=== PATIENT | female | born 1990 | race Two or more races ===

== ENCOUNTER 2020-04-18 08:50 | Observation (INO) | payer OTHER ==
[~2020-04-18] VITALS: Ht 154.9 cm; Wt 59.0 kg
[2020-04-18 09:38] VITALS: BP 110/72
[2020-04-18] MEDS ORDERED: METF-961 PO (10:13)
[2020-04-18] MEDS ORDERED: PREN-217 PO (10:13)
[2020-04-18 19:07] LABS: GLUCOMETER DEV NAME(LOC) 4S.; GLUCOSE,POINT OF CARE 128 MG/DL (70-110)
== END 2020-04-18 13:45 | disposition home or self-care (01) ==
LOC: 4S 08:50
PROVIDERS: ADMIT Obstetrics & Gynecology; ATTEND Obstetrics & Gynecology
DX: O24.419 Gestational diabetes mellitus in pregnancy, unspecified control (principal); Z3A.37 37 weeks gestation of pregnancy
CPT/HCPCS: 59025; 99219

== ENCOUNTER 2020-04-22 10:12 | Inpatient (IN) | payer OTHER ==
[~2020-04-22] VITALS: Ht 154.9 cm; Wt 59.9 kg
[~2020-04-22 10:12] MED LIST: METF-961 PO; PREN-217 PO
[2020-04-22 10:50] VITALS: BP 104/70
[2020-04-22 11:04] LABS: BASOPHILS % (AUTO) 0.9 % (0.0-2.0); EOSINOPHILS % (AUTO) 0.5 % (1.0-6.0); HEMATOCRIT 32.4 % (36-46); HEMOGLOBIN 11.2 g/dL (12.0-16.0); LYMPHOCYTES # (AUTO) 1.2 K/uL (1.0-4.8); LYMPHOCYTES % (AUTO) 15.1 % (22.0-44.0); MEAN CORPUSCULAR HEMOGLOBIN 31.9 pg (26.0-34.0); MEAN CORPUSCULAR HGB CONC 34.7 G/dL (31.0-37.0); MEAN CORPUSCULAR VOLUME 92 fL (80-100); MONOCYTES # (AUTO) 0.6 K/uL (0.1-1.0); MONOCYTES % (AUTO) 7.7 % (2.0-9.0); NEUTROPHILS # (AUTO) 6.1 K/uL (1.8-7.7); NEUTROPHILS % (AUTO) 75.8 % (40.0-70.0); PLATELET COUNT (AUTO) 300 K/uL (150-450); RED BLOOD CELL COUNT(AUTO) 3.51 MIL/uL (4.00-5.20); RED CELL DISTRIBUTION WIDTH 13.1 % (11.5-14.5)
[2020-04-22 11:20] LABS: CREATININE,URINE RANDOM 208.7 mg/dL (30.0-125.0)
[2020-04-22 11:22] LABS: ANION GAP 10 mmol/L (8-16); CARBON DIOXIDE 24 mmol/L (22-29); CHLORIDE 105 mmol/L (98-107); CREATININE 0.71 mg/dL (0.60-1.30); GLOMERULAR FILTR. RATE CALC > 60 mL/min (>60); GLUCOSE,RANDOM 95 mg/dL (70-110); POTASSIUM 3.8 mmol/L (3.5-5.1); SODIUM SERUM 139 mmol/L (136-145); UREA NITROGEN, BLOOD 13 mg/dL (7-18)
[2020-04-22 11:25] LABS: HEMOGLOBIN A1C 5.2 % (3.8-5.6)
[2020-04-22 11:28] LABS: ALANINE AMINOTRANSFERASE 12 U/L (12-78); ALBUMIN 2.6 g/dL (3.4-5.0); ALKALINE PHOSPHATASE 143 U/L (46-116); ASPARTATE AMINOTRANSFERASE 16 U/L (15-37); BILIRUBIN,TOTAL 0.3 mg/dL (0.1-1.0); TOTAL PROTEIN, SERUM 6.5 g/dL (6.4-8.2); URIC ACID 4.7 mg/dL (2.6-7.2)
[2020-04-22 13:18] LABS: GLUCOMETER DEV NAME(LOC) 4S.; GLUCOSE,POINT OF CARE 105 MG/DL (70-110)
[2020-04-22] MEDS ORDERED: RINGERS SOLUTION,LACTATED 1,000 ML IV SCH (14:30)
[2020-04-22] MEDS ORDERED: TERBUTALINE SULFATE 1 MG/ML VIAL SQ PRN (14:30)
[2020-04-22] MEDS ORDERED: METHYLERGONOVINE MALEATE 0.2 MG/ML VIAL IM PRN (14:30)
[2020-04-22] MEDS ORDERED: OXYTOCIN 30 UNITS/LACT RINGERS 500 ML IV ONE (14:30)
[2020-04-22] MEDS ORDERED: RINGERS SOLUTION,LACTATED 1,000 ML IV PRN (14:30)
[2020-04-22] MEDS ORDERED: LIDOCAINE/PF 1% 30 ML VIAL INJ PRN (14:30)
[2020-04-22] MEDS ORDERED: CITRIC ACID/SODIUM CITRATE 30 ML SOLUTION UDCUP PO PRN (14:30)
[2020-04-22] MEDS ORDERED: FentaNYL CITRATE-PF 100 MCG/2 ML VIAL IVP PRN (14:30)
[2020-04-22] MEDS ORDERED: METOCLOPRAMIDE HCL 5 MG/ML 2 ML VIAL IVP PRN (14:30)
[2020-04-22 15:05] LABS: COVID AG,FIA SOURCE NASOPHARYNGEAL
[2020-04-22] MEDS ORDERED: MetFORMIN HCL 850 MG TABLET PO ONE (15:30)
[2020-04-22] MEDS ORDERED: OXYTOCIN 30 UNITS/LACT RINGERS 500 ML IV PRN (21:30)
[2020-04-22] MEDS ORDERED: AMPICILLIN SODIUM 2 GM/NS 100 ML IV ONE (22:00)
[2020-04-23] MEDS: AMPICILLIN SODIUM 1 GM/NS 50 ML IV SCH ×3 (02:09→10:39)
[2020-04-23] MEDS ORDERED: INFLUENZA VIRUS VACCINE QVS 2020-21 (6MO+)/PF 60 MCG/0.5 ML SYRINGE IM ONE (03:45)
[2020-04-23 07:40] LABS: GLUCOMETER DEV NAME(LOC) 4S.; GLUCOSE,POINT OF CARE 89 MG/DL (70-110)
[2020-04-23 07:40] LABS: GLUCOMETER DEV NAME(LOC) 4S.; GLUCOSE,POINT OF CARE 84 MG/DL (70-110)
[2020-04-23 09:42] LABS: GLUCOMETER DEV NAME(LOC) 4S.; GLUCOSE,POINT OF CARE 105 MG/DL (70-110)
[2020-04-23] MEDS ORDERED: ROPIVACAINE HCL/PF 0.2% 100 ML ED ONE (10:49)
[2020-04-23] MEDS ORDERED: BUPIVACAINE HCL/PF 0.25% 10 ML VIAL ONE (10:49)
[2020-04-23] MEDS ORDERED: ROPIVACAINE HCL/PF 0.2% 100 ML ED PRN (11:15)
[2020-04-23] MEDS ORDERED: NALBUPHINE HCL 10 MG/ML VIAL IVP PRN (11:15)
[2020-04-23] MEDS ORDERED: DiphenhydrAMINE HCL 50 MG/ML VIAL IVP PRN (11:15)
[2020-04-23] MEDS ORDERED: ONDANSETRON HCL 4 MG/2 ML VIAL IVP PRN (11:15)
[2020-04-23] MEDS ORDERED: LIDOCAINE 1%/EPI 1:200,000/PF 10 ML VIAL ONE (12:09)
[2020-04-23] MEDS ORDERED: LANOLIN 7 GM OINTMENT TP PRN (16:30)
[2020-04-23] MEDS ORDERED: OxyCODONE HCL/ACETAMINOPHEN 5-325 MG TABLET PO PRN ×2 (16:30)
[2020-04-23] MEDS ORDERED: GLYCERIN/WITCH HAZEL LEAF 40 PADS JAR TP PRN (16:30)
[2020-04-23] MEDS ORDERED: OXYTOCIN 30 UNITS/LACT RINGERS 500 ML IV ONE (16:30)
[2020-04-23] MEDS ORDERED: BENZOCAINE 20%/MENTHOL 56 GM SPRAY CANISTER TP PRN (16:30)
[2020-04-23] MEDS: IBUPROFEN 800 MG TABLET PO PRN (17:55)
[2020-04-23] MEDS: MAGNESIUM HYDROXIDE SUSPENSION 30 ML UDCUP PO PRN (21:38)
[2020-04-24] MEDS: IBUPROFEN 800 MG TABLET PO PRN ×2 (03:46→15:37)
[2020-04-24 03:56] LABS: BASOPHILS % (AUTO) 0.7 % (0.0-2.0); EOSINOPHILS % (AUTO) 0.1 % (1.0-6.0); HEMATOCRIT 26.4 % (36-46); LYMPHOCYTES # (AUTO) 1.1 K/uL (1.0-4.8); LYMPHOCYTES % (AUTO) 9.2 % (22.0-44.0); MEAN CORPUSCULAR HEMOGLOBIN 31.7 pg (26.0-34.0); MEAN CORPUSCULAR HGB CONC 34.1 G/dL (31.0-37.0); MEAN CORPUSCULAR VOLUME 93 fL (80-100); MONOCYTES # (AUTO) 1.1 K/uL (0.1-1.0); MONOCYTES % (AUTO) 8.5 % (2.0-9.0); NEUTROPHILS # (AUTO) 10.2 K/uL (1.8-7.7); NEUTROPHILS % (AUTO) 81.5 % (40.0-70.0); PLATELET COUNT (AUTO)-OB 270 K/uL (150-450); RED BLOOD CELL COUNT(AUTO) 2.84 MIL/uL (4.00-5.20); RED CELL DISTRIBUTION WIDTH 12.8 % (11.5-14.5)
[2020-04-24] MEDS: MAGNESIUM HYDROXIDE SUSPENSION 30 ML UDCUP PO PRN (08:46)
[2020-04-24] MEDS ORDERED: IBUP-2071 PO (09:20)
[2020-04-24] MEDS ORDERED: DOCU-275 PO (09:20)
== END 2020-04-24 16:05 | disposition home or self-care (01) | DRG 768 ==
LOC: OBSVTOIN 10:12 → 4S 10:12
PROVIDERS: ADMIT Obstetrics & Gynecology; ATTEND Obstetrics & Gynecology
PROC: 10D07Z6 Extraction of Products of Conception, Vacuum, Via Natural or Artificial Opening (ICD-10-PCS; principal; 2020-04-23)
PROC: 0DQR0ZZ Repair Anal Sphincter, Open Approach (ICD-10-PCS; 2020-04-23)
PROC: 0W8NXZZ Division of Female Perineum, External Approach (ICD-10-PCS; 2020-04-23)
PROC: 3E0R3BZ Introduction of Anesthetic Agent into Spinal Canal, Percutaneous Approach (ICD-10-PCS; 2020-04-23)
PROC: 00HU33Z Insertion of Infusion Device into Spinal Canal, Percutaneous Approach (ICD-10-PCS; 2020-04-23)
PROC: 3E02340 Introduction of Influenza Vaccine into Muscle, Percutaneous Approach (ICD-10-PCS; 2020-04-23)
DX: O76 Abnormality in fetal heart rate and rhythm complicating labor and delivery (principal); Z37.0 Single live birth; O70.20 Third degree perineal laceration during delivery, unspecified; Z3A.38 38 weeks gestation of pregnancy; Z20.828 Contact with and (suspected) exposure to other viral communicable diseases; Z23 Encounter for immunization; O66.5 Attempted application of vacuum extractor and forceps; O24.425 Gestational diabetes mellitus in childbirth, controlled by oral hypoglycemic drugs
CPT/HCPCS: 82570; 83036; 84156; 84550; 86850; 86900; 86901; 87426; 90686; J0290; J2590; J2795; J3490; J7120